=== PATIENT | male | born 1970 | race Caucasian/White ===

== ENCOUNTER 2021-01-24 23:19 | Emergency (ER) | payer MEDICARE, OTHER ==
[~2021-01-24 23:19] MED LIST: ATORVASTATIN CA80 MG PO; CLARITIN10 MG PO; GABAPENTIN400 MG PO; LEXAPRO10 MG PO; LOPRESSOR 25 MG25 MG PO; MELATONIN3 MG PO; OMEPRAZOLE20 MG PO; PLAVIX 75 MG TA75 MG PO; PRINIVIL20 MG PO; PRINIVIL5 MG PO; SEROQUEL25 MG PO; TYLENOL 500 MG500 MG PO; ULTRAM50 MG PO; [UNRECOGNIZED DRUG - REMARK]
== END 2021-01-25 00:26 | disposition left against medical advice (07) ==
LOC: ER1 23:19
DX: T83.9XXA Unspecified complication of genitourinary prosthetic device, implant and graft, initial encounter (principal); N18.30 Chronic kidney disease, stage 3 unspecified
CPT/HCPCS: 51702; 99284

== ENCOUNTER 2021-05-29 20:05 | Emergency (ER) | payer MEDICARE, OTHER ==
[2021-05-29 20:36] LABS: HEMOGLOBIN 12.3 gm/dl (14.0-17.5); RED BLOOD COUNT 4.52 M/UL (4.20-5.50); WHITE BLOOD COUNT 9.2 K/UL (4.5-11.0)
== END 2021-05-30 10:00 | disposition short-term general hospital (02) ==
LOC: ER1 20:05 → CDU 05-30 04:48 → ER1 05-30 04:48 → CDU 05-30 04:48
PROVIDERS: Family Medicine
DX: J96.91 Respiratory failure, unspecified with hypoxia (principal); I31.3 Pericardial effusion (noninflammatory); J18.9 Pneumonia, unspecified organism; J91.8 Pleural effusion in other conditions classified elsewhere; N28.9 Disorder of kidney and ureter, unspecified; R77.8 Other specified abnormalities of plasma proteins; I25.10 Atherosclerotic heart disease of native coronary artery without angina pectoris; E11.9 Type 2 diabetes mellitus without complications; Z95.1 Presence of aortocoronary bypass graft; Z20.822 Contact with and (suspected) exposure to COVID-19; Z88.0 Allergy status to penicillin
CPT/HCPCS: 36600; 71045; 71250; 80053; 80307; 81001; 82550; 82553; 82803; 83874; 84484; 85025; 85610; 96374; 99285; G0378; J1940; U0002

== ENCOUNTER 2021-07-13 13:33 | Inpatient (IN) | payer MEDICARE, OTHER ==
[~2021-07-13] VITALS: Ht 175.3 cm; Wt 82.6 kg
[~2021-07-13 13:33] MED LIST changes: -GABAPENTIN400 MG PO; +GABAPENTIN600 MG PO; -LOPRESSOR 25 MG25 MG PO; +METOPROLOL SUCC25 MG PO; +SPIRONOLACTONE25 MG PO; -TYLENOL 500 MG500 MG PO; +TYLENOL325 MG PO
[2021-07-13 15:16] LABS: HEMOGLOBIN 11.4 gm/dl (14.0-17.5); RED BLOOD COUNT 4.26 M/UL (4.20-5.50)
[2021-07-13] MEDS ORDERED: FUROSEMIDE40 MG PO (18:11)
[2021-07-13] MEDS ORDERED: DIVALPROEX SOD125 M1 PO (18:13)
[2021-07-13] MEDS ORDERED: TRAZODONE HCL100 MG PO (18:14)
[2021-07-13] MEDS ORDERED: PROTONIX40 MG PO (18:14)
[2021-07-13] MEDS ORDERED: TAMSULOSIN HCL0.4 MG PO (18:14)
[2021-07-13] MEDS ORDERED: ASPIRIN EC81 MG PO (18:15)
[2021-07-13] MEDS ORDERED: POTASSIUM CHLOR8 MEQ PO (18:15)
[2021-07-13] MEDS ORDERED: DRISDOL1250 MCG PO (18:15)
[2021-07-13] MEDS ORDERED: SENNA PLUS 8.61 EACH PO (18:16)
[2021-07-14 05:48] LABS: HEMOGLOBIN 10.6 gm/dl (14.0-17.5); RED BLOOD COUNT 4.03 M/UL (4.20-5.50); WHITE BLOOD COUNT 6.6 K/UL (4.5-11.0)
[2021-07-15 03:38] LABS: HEMOGLOBIN 10.9 gm/dl (14.0-17.5); RED BLOOD COUNT 4.13 M/UL (4.20-5.50)
[2021-07-16 08:56] LABS: HEMOGLOBIN 12.6 gm/dl (14.0-17.5); WHITE BLOOD COUNT 5.9 K/UL (4.5-11.0)
[2021-07-16 08:57] LABS: RED BLOOD COUNT 4.74 M/UL (4.20-5.50)
[2021-07-17 03:46] LABS: HEMOGLOBIN 10.8 gm/dl (14.0-17.5)
[2021-07-17 03:47] LABS: RED BLOOD COUNT 4.16 M/UL (4.20-5.50)
[2021-07-18 04:02] LABS: HEMOGLOBIN 10.9 gm/dl (14.0-17.5); RED BLOOD COUNT 4.23 M/UL (4.20-5.50); WHITE BLOOD COUNT 6.6 K/UL (4.5-11.0)
[2021-07-20 04:51] LABS: BUN/CREATININE RATIO 26 (0-10)
[2021-07-20 10:45] LABS: BODY FLUID SOURCE PLEURAL
[2021-07-20 10:48] LABS: MONONUCLEAR CELLS 88 (75-100); POLYMORPHONUCLEAR % 12 (0-25); RBC (AUTOMATED) 300 (0-100000); WBC (AUTOMATED) 175 (0-500)
[2021-07-20 11:18] LABS: TOTAL PROTEIN, BODY FLUID 3.8 gm/dL
[2021-07-20 11:19] LABS: LDH, BODY FLUID 94 U/L
--- NOTE | 2021-07-23 14:24 | NUR ---
ATTEMPTED TO CALL REPORT TO ROXANA ALY ON 4TH FLOOR FOR TRANSFER, SHE IS BUSY WITH ADMISSION, WILL CALL BACK
--- NOTE | 2021-07-23 15:23 | NUR ---
REPORT TO ROXANA ALY ON 4TH FLOOR FOR PATIENT TRANSFER TO [facility]
[2021-07-25 06:56] LABS: BUN/CREATININE RATIO 29 (0-10)
--- NOTE | 2021-07-26 18:48 | NUR ---
TAPIA CATHETER D/'D WITH 150 IN UROMETER. PT TOLERATED WELL.
[2021-07-27 06:18] LABS: HEMOGLOBIN 11.1 gm/dl (14.0-17.5); RED BLOOD COUNT 4.29 M/UL (4.20-5.50); WHITE BLOOD COUNT 5.8 K/UL (4.5-11.0)
[2021-07-28] MEDS ORDERED: LISINOPRIL5 MG PO (10:30)
[2021-07-28] MEDS ORDERED: CARVEDILOL3.125 MG PO (10:30)
== END 2021-07-28 14:11 | disposition home health service (06) | DRG 291 ==
LOC: ER1 13:33 → CDU 17:11 → PROG CARE 17:11 → MED SURG 4 17:11 → PROG CARE 21:38 → MED SURG 4 07-23 15:07
PROVIDERS: Internal Medicine; Internal Medicine Pulmonary Disease; Nurse Practitioner; Physician Assistant Medical; ADMIT Internal Medicine
PROC: 0W993ZZ Drainage of Right Pleural Cavity, Percutaneous Approach (ICD-10-PCS; principal; 2021-07-20)
DX: I13.0 Hypertensive heart and chronic kidney disease with heart failure and stage 1 through stage 4 chronic kidney disease, or unspecified chronic kidney disease (principal); J18.9 Pneumonia, unspecified organism; J96.21 Acute and chronic respiratory failure with hypoxia; I50.23 Acute on chronic systolic (congestive) heart failure; T83.518A Infection and inflammatory reaction due to other urinary catheter, initial encounter; N17.9 Acute kidney failure, unspecified; E87.1 Hypo-osmolality and hyponatremia; Z20.822 Contact with and (suspected) exposure to COVID-19; N18.30 Chronic kidney disease, stage 3 unspecified; I25.10 Atherosclerotic heart disease of native coronary artery without angina pectoris; E11.22 Type 2 diabetes mellitus with diabetic chronic kidney disease; E78.5 Hyperlipidemia, unspecified; F15.10 Other stimulant abuse, uncomplicated; E11.40 Type 2 diabetes mellitus with diabetic neuropathy, unspecified; E55.9 Vitamin D deficiency, unspecified; R13.10 Dysphagia, unspecified; I95.2 Hypotension due to drugs; T42.0X5A Adverse effect of hydantoin derivatives, initial encounter; R53.81 Other malaise; I25.5 Ischemic cardiomyopathy; N40.0 Benign prostatic hyperplasia without lower urinary tract symptoms; Z95.5 Presence of coronary angioplasty implant and graft; I69.391 Dysphagia following cerebral infarction; Z90.49 Acquired absence of other specified parts of digestive tract; Z90.89 Acquired absence of other organs; Z93.1 Gastrostomy status; Z98.890 Other specified postprocedural states; Z88.0 Allergy status to penicillin; Z82.49 Family history of ischemic heart disease and other diseases of the circulatory system; Z83.3 Family history of diabetes mellitus; Z79.82 Long term (current) use of aspirin; Z79.899 Other long term (current) drug therapy; Z79.4 Long term (current) use of insulin
CPT/HCPCS: ECHO; 36415; 36600; 51702; 71045; 73020; 78580; 80048; 80053; 80307; 81001; 82436; 82550; 82553; 82570; 82803; 82945; 82962; 83036; 83540; 83550; 83605; 83615; 83735; 83874; 83880; 84100; 84133; 84156; 84157; 84300; 84439; 84443; 84484; 85025; 85027; 85379; 85610; 85730; 86140; 87040; 87070; 87086; 87205; 89051; 93005; 93306; 94760; 96374; 97110; 97110-GP-CQ; 97116-GP-CQ; 97161; 97166; 97530; 97530-GP-CQ; 97535; 99285; A9540; J1205; J1335; J1644; J1650; J1940; J2270; J2405; J7030; J7050; U0002

== ENCOUNTER 2021-09-24 10:26 | Inpatient (IN) | payer MEDICARE, OTHER ==
[~2021-09-24] VITALS: Ht 175.3 cm; Wt 104.1 kg
[~2021-09-24 10:26] MED LIST changes: +ASPIRIN EC81 MG PO; +CARVEDILOL3.125 MG PO; +DRISDOL1250 MCG PO; +LISINOPRIL5 MG PO; +SENNA PLUS 8.61 EACH PO; +TAMSULOSIN HCL0.4 MG PO
[2021-09-24 10:55] LABS: RED BLOOD COUNT 4.34 M/UL (4.20-5.50); WHITE BLOOD COUNT 6.6 K/UL (4.5-11.0)
[2021-09-24] MEDS ORDERED: FUROSEMIDE40 MG PO (18:11)
[2021-09-24] MEDS ORDERED: DIVALPROEX SOD125 M1 PO (18:13)
[2021-09-24] MEDS ORDERED: PROTONIX40 MG PO (18:14)
[2021-09-24] MEDS ORDERED: TRAZODONE HCL100 MG PO (18:14)
[2021-09-24] MEDS ORDERED: POTASSIUM CHLO10 ME1 PO (18:15)
[2021-09-24] MEDS ORDERED: LISINOPRIL2.5 MG PO (18:26)
[2021-09-24] MEDS ORDERED: LEXAPRO10 MG PO (18:29)
[2021-09-24] MEDS ORDERED: METOPROLOL SUCC25 MG PO (18:29)
[2021-09-25 05:53] LABS: HEMOGLOBIN 11.1 gm/dl (14.0-17.5); RED BLOOD COUNT 4.4 M/UL (4.20-5.50)
[2021-09-26 05:21] LABS: HEMOGLOBIN 10.8 gm/dl (14.0-17.5); RED BLOOD COUNT 4.27 M/UL (4.20-5.50); WHITE BLOOD COUNT 8.8 K/UL (4.5-11.0)
[2021-09-27 03:04] LABS: HEMOGLOBIN 10.4 gm/dl (14.0-17.5); RED BLOOD COUNT 4.13 M/UL (4.20-5.50); WHITE BLOOD COUNT 9.9 K/UL (4.5-11.0)
[2021-09-28 03:00] LABS: RED BLOOD COUNT 4.35 M/UL (4.20-5.50); WHITE BLOOD COUNT 8.1 K/UL (4.5-11.0)
[2021-09-29 04:12] LABS: HEMOGLOBIN 10.2 gm/dl (14.0-17.5); RED BLOOD COUNT 4.01 M/UL (4.20-5.50); WHITE BLOOD COUNT 6.8 K/UL (4.5-11.0)
[2021-09-30 07:50] LABS: HEMOGLOBIN 10.3 gm/dl (14.0-17.5); RED BLOOD COUNT 4.14 M/UL (4.20-5.50)
[2021-10-01 06:53] LABS: HEMOGLOBIN 10.9 gm/dl (14.0-17.5); RED BLOOD COUNT 4.35 M/UL (4.20-5.50); WHITE BLOOD COUNT 6.1 K/UL (4.5-11.0)
[2021-10-02 06:28] LABS: HEMOGLOBIN 10.9 gm/dl (14.0-17.5); RED BLOOD COUNT 4.31 M/UL (4.20-5.50); WHITE BLOOD COUNT 6.6 K/UL (4.5-11.0)
[2021-10-03 05:00] LABS: HEMOGLOBIN 10.7 gm/dl (14.0-17.5); RED BLOOD COUNT 4.22 M/UL (4.20-5.50); WHITE BLOOD COUNT 6.4 K/UL (4.5-11.0)
[2021-10-04 06:33] LABS: HEMOGLOBIN 10.5 gm/dl (14.0-17.5); RED BLOOD COUNT 4.19 M/UL (4.20-5.50); WHITE BLOOD COUNT 5.2 K/UL (4.5-11.0)
[2021-10-04] MEDS ORDERED: CARVEDILOL3.125 MG PO (14:19)
[2021-10-04] MEDS ORDERED: IPRAT-ALBUT 0.5-3 ML NEB (14:19)
[2021-10-04] MEDS ORDERED: BUMETANIDE1 MG PO (14:19)
[2021-10-04] MEDS ORDERED: BUDESONIDE0.5 MG/2 M NEB (14:19)
[2021-10-04] MEDS ORDERED: LANTUS SOL100 UNIT/1 SQ (14:40)
[2021-10-04] MEDS ORDERED: ALDACTONE 25MG25 MG PO (14:40)
[2021-10-05 07:28] LABS: HEMOGLOBIN 11.5 gm/dl (14.0-17.5); WHITE BLOOD COUNT 5.2 K/UL (4.5-11.0)
[2021-10-05 07:32] LABS: RED BLOOD COUNT 4.65 M/UL (4.20-5.50)
[2021-10-06 03:52] LABS: HEMOGLOBIN 10.5 gm/dl (14.0-17.5); WHITE BLOOD COUNT 5.9 K/UL (4.5-11.0)
[2021-10-06 03:53] LABS: RED BLOOD COUNT 4.16 M/UL (4.20-5.50)
[2021-10-07 03:12] LABS: HEMOGLOBIN 10.6 gm/dl (14.0-17.5); RED BLOOD COUNT 4.19 M/UL (4.20-5.50); WHITE BLOOD COUNT 6.3 K/UL (4.5-11.0)
[2021-10-08 06:58] LABS: HEMOGLOBIN 10.4 gm/dl (14.0-17.5); RED BLOOD COUNT 4.1 M/UL (4.20-5.50); WHITE BLOOD COUNT 6.1 K/UL (4.5-11.0)
[2021-10-08] MEDS ORDERED: BUMETANIDE1 MG PO (12:11)
[2021-10-08] MEDS ORDERED: ALDACTONE 25MG25 MG PO (12:11)
[2021-10-08] MEDS ORDERED: DOXYCYCLINE HY100 MG PO (12:11)
== END 2021-10-08 14:18 | disposition home health service (06) | DRG 226 ==
LOC: ER1 10:26 → PROG CARE 12:16 → MED SURG 4 12:16 → CCU 12:16 → CDU 12:16 → CCU 14:42 → PROG CARE 09-26 19:16 → MED SURG 4 09-29 16:07
PROVIDERS: Internal Medicine; Internal Medicine Nephrology; Internal Medicine Pulmonary Disease; Nurse Practitioner; ADMIT Internal Medicine
PROC: 5A09457 Assistance with Respiratory Ventilation, 24-96 Consecutive Hours, Continuous Positive Airway Pressure (ICD-10-PCS; principal; 2021-09-25)
PROC: B24BZZZ Ultrasonography of Heart with Aorta (ICD-10-PCS; 2021-09-25)
PROC: 0JH608Z Insertion of Defibrillator Generator into Chest Subcutaneous Tissue and Fascia, Open Approach (ICD-10-PCS; 2021-10-06)
PROC: 0JH60FZ Insertion of Subcutaneous Defibrillator Lead into Chest Subcutaneous Tissue and Fascia, Open Approach (ICD-10-PCS; 2021-10-06)
DX: I13.0 Hypertensive heart and chronic kidney disease with heart failure and stage 1 through stage 4 chronic kidney disease, or unspecified chronic kidney disease (principal); J18.9 Pneumonia, unspecified organism; Z20.822 Contact with and (suspected) exposure to COVID-19; I50.43 Acute on chronic combined systolic (congestive) and diastolic (congestive) heart failure; G92.8 Other toxic encephalopathy; J96.21 Acute and chronic respiratory failure with hypoxia; J96.22 Acute and chronic respiratory failure with hypercapnia; N17.9 Acute kidney failure, unspecified; E87.2 Acidosis; E87.3 Alkalosis; J44.1 Chronic obstructive pulmonary disease with (acute) exacerbation; J44.0 Chronic obstructive pulmonary disease with (acute) lower respiratory infection; Z90.49 Acquired absence of other specified parts of digestive tract; N18.30 Chronic kidney disease, stage 3 unspecified; I25.10 Atherosclerotic heart disease of native coronary artery without angina pectoris; I25.5 Ischemic cardiomyopathy; E11.22 Type 2 diabetes mellitus with diabetic chronic kidney disease; E78.5 Hyperlipidemia, unspecified; E66.01 Morbid (severe) obesity due to excess calories; R53.81 Other malaise; F15.10 Other stimulant abuse, uncomplicated; E87.5 Hyperkalemia; Z95.5 Presence of coronary angioplasty implant and graft; Z93.1 Gastrostomy status; Z98.890 Other specified postprocedural states; Z88.0 Allergy status to penicillin; Z88.5 Allergy status to narcotic agent; Z82.49 Family history of ischemic heart disease and other diseases of the circulatory system; Z83.3 Family history of diabetes mellitus; Z91.14 Patient's other noncompliance with medication regimen; I25.2 Old myocardial infarction; Z86.73 Personal history of transient ischemic attack (TIA), and cerebral infarction without residual deficits; Z79.82 Long term (current) use of aspirin; Z79.899 Other long term (current) drug therapy; Z88.8 Allergy status to other drugs, medicaments and biological substances; Z79.4 Long term (current) use of insulin; Z68.33 Body mass index [BMI] 33.0-33.9, adult
CPT/HCPCS: ECHO; 0240U; 33270; 36415; 36600; 51702; 70450; 71045; 71046; 73030; 73060; 73090; 80048; 80053; 80307; 81001; 82140; 82150; 82550; 82553; 82803; 82962; 83036; 83605; 83615; 83690; 83735; 83874; 83880; 84100; 84133; 84300; 84484; 85025; 85027; 85379; 85610; 85652; 85730; 86140; 87040; 87081; 87086; 93005; 93306; 93644; 94640; 94660; 94760; 96374; 96375; 97110; 97110-GP-CQ; 97116; 97116-GP-CQ; 97162; 97166; 97530; 97530-GP-CQ; 99152; 99153; 99285; C1722; C1896; C9113; J1120; J1200; J1335; J1644; J1650; J1940; J1956; J2020; J2185; J2250; J2310; J2405; J2920; J3010; J3370; J7040; J7050; J7070

== ENCOUNTER 2021-11-19 13:35 | Inpatient (IN) | payer MEDICARE, OTHER ==
[~2021-11-19] VITALS: Ht 175.3 cm; Wt 93.9 kg
[~2021-11-19 13:35] MED LIST changes: +ALDACTONE 25MG25 MG PO; +BUDESONIDE0.5 MG/2 M NEB; +BUMETANIDE1 MG PO; +DIVALPROEX SOD125 M1 PO; +DOXYCYCLINE HY100 MG PO; +FLOMAX 0.4 MG0.4 MG PO; +FUROSEMIDE40 MG PO; +IPRAT-ALBUT 0.5-3 ML NEB; +LANTUS SOL100 UNIT/1 SQ; +LISINOPRIL2.5 MG PO; +POTASSIUM CHLO10 ME1 PO; +PROTONIX40 MG PO; -TAMSULOSIN HCL0.4 MG PO; +TRAZODONE HCL100 MG PO
[2021-11-19 15:09] LABS: HEMOGLOBIN 10.8 gm/dl (14.0-17.5); RED BLOOD COUNT 4.64 M/UL (4.20-5.50); WHITE BLOOD COUNT 9.5 K/UL (4.5-11.0)
[2021-11-19] MEDS ORDERED: BUMETANIDE1 MG PO (16:33)
[2021-11-19] MEDS ORDERED: CLOPIDOGREL75 MG PO (16:34)
[2021-11-19] MEDS ORDERED: SPIRONOLACTONE25 MG PO (16:34)
[2021-11-19] MEDS ORDERED: CARVEDILOL3.125 MG PO (16:34)
[2021-11-19] MEDS ORDERED: DIVALPROEX SOD250 MG PO (16:36)
[2021-11-19] MEDS ORDERED: ESCITALOPRAM OX10 MG PO (16:38)
[2021-11-20 04:04] LABS: HEMOGLOBIN 10.5 gm/dl (14.0-17.5); RED BLOOD COUNT 4.53 M/UL (4.20-5.50); WHITE BLOOD COUNT 8.6 K/UL (4.5-11.0)
--- NOTE | 2021-11-20 11:36 | NUR ---
11/20/21 1130 REPORT CALLED TO ALYSSA TO BE TRANSFERRED TO ROOM 2122 FOR DOBUTAMINE GTT
--- NOTE | 2021-11-20 12:31 | NUR ---
11/20/21 1230 REPORT CALLED TO YOLY CHATTERJEE RN TO BE TRANSFERRED TO 59 INSTEAD OF [phone]
[2021-11-21 01:44] LABS: HEMOGLOBIN 9.6 gm/dl (14.0-17.5); RED BLOOD COUNT 4.17 M/UL (4.20-5.50); WHITE BLOOD COUNT 9.4 K/UL (4.5-11.0)
[2021-11-22 02:13] LABS: HEMOGLOBIN 9.6 gm/dl (14.0-17.5); RED BLOOD COUNT 4.16 M/UL (4.20-5.50); WHITE BLOOD COUNT 7.6 K/UL (4.5-11.0)
[2021-11-30 02:27] LABS: HEMOGLOBIN 9.4 gm/dl (14.0-17.5); RED BLOOD COUNT 4.05 M/UL (4.20-5.50)
[2021-11-30] MEDS ORDERED: LOPRESSOR 25 MG25 MG PO (10:05)
== END 2021-11-30 12:17 | disposition home health service (06) | DRG 193 ==
LOC: ER1 13:35 → PROG CARE 16:08 → CDU 16:08 → M/S 17:36 → PROG CARE 11-20 12:39
PROVIDERS: Family Medicine; Internal Medicine; Internal Medicine Cardiovascular Disease; Internal Medicine Nephrology; ADMIT Internal Medicine
DX: J18.9 Pneumonia, unspecified organism (principal); J96.21 Acute and chronic respiratory failure with hypoxia; I50.23 Acute on chronic systolic (congestive) heart failure; Z20.822 Contact with and (suspected) exposure to COVID-19; I13.0 Hypertensive heart and chronic kidney disease with heart failure and stage 1 through stage 4 chronic kidney disease, or unspecified chronic kidney disease; N17.9 Acute kidney failure, unspecified; D63.1 Anemia in chronic kidney disease; E55.9 Vitamin D deficiency, unspecified; I25.5 Ischemic cardiomyopathy; E11.22 Type 2 diabetes mellitus with diabetic chronic kidney disease; N18.30 Chronic kidney disease, stage 3 unspecified; F15.10 Other stimulant abuse, uncomplicated; E66.9 Obesity, unspecified; I25.10 Atherosclerotic heart disease of native coronary artery without angina pectoris; F17.290 Nicotine dependence, other tobacco product, uncomplicated; Z95.1 Presence of aortocoronary bypass graft; Z95.810 Presence of automatic (implantable) cardiac defibrillator; Z79.01 Long term (current) use of anticoagulants; Z79.82 Long term (current) use of aspirin; Z82.49 Family history of ischemic heart disease and other diseases of the circulatory system; Z88.5 Allergy status to narcotic agent; Z88.0 Allergy status to penicillin; Z99.81 Dependence on supplemental oxygen; Z86.73 Personal history of transient ischemic attack (TIA), and cerebral infarction without residual deficits; Z90.49 Acquired absence of other specified parts of digestive tract; Z68.29 Body mass index [BMI] 29.0-29.9, adult; I25.2 Old myocardial infarction; Z79.4 Long term (current) use of insulin
CPT/HCPCS: 36415; 36600; 71045; 76705; 80048; 80053; 80307; 81001; 82550; 82553; 82570; 82803; 82962; 83605; 83735; 83880; 84100; 84156; 84484; 85025; 85610; 87040; 93005; 96374; 96375; 97110-GP-CQ; 97116-GP-CQ; 97162; 97530; 99285; J1250; J1335; J1644; J1940; J1956; J2270; U0002

== ENCOUNTER 2021-12-25 03:55 | Inpatient (IN) | payer MEDICARE, OTHER ==
[~2021-12-25] VITALS: Ht 175.3 cm; Wt 90.7 kg
[~2021-12-25 03:55] MED LIST changes: +CLOPIDOGREL75 MG PO; +DIVALPROEX SOD250 MG PO; +ESCITALOPRAM OX10 MG PO; +LOPRESSOR 25 MG25 MG PO
[2021-12-25 05:27] LABS: HEMOGLOBIN 10.9 gm/dl (14.0-17.5); RED BLOOD COUNT 4.57 M/UL (4.20-5.50); WHITE BLOOD COUNT 10.5 K/UL (4.5-11.0)
[2021-12-25] MEDS ORDERED: ALBUTEROL2.5 MG/3 M NEB (08:50)
[2021-12-25] MEDS ORDERED: SINEMET 25-1001 EACH PO (08:52)
[2021-12-25] MEDS ORDERED: COREG 3.125M3.125 MG PO ×2 (08:54→10:16)
[2021-12-25] MEDS ORDERED: ELIQUIS2.5 MG PO (08:54)
[2021-12-25] MEDS ORDERED: FLONASE 0.05% N16 GM (08:55)
[2021-12-25] MEDS ORDERED: ULORIC 40 MG TA40 MG PO (08:55)
[2021-12-25] MEDS ORDERED: FUROSEMIDE20 MG PO (08:56)
[2021-12-25] MEDS ORDERED: FUROSEMIDE40 MG PO (08:57)
[2021-12-25] MEDS ORDERED: NEURONTIN300 MG PO (08:58)
[2021-12-25] MEDS ORDERED: GLUCOTROL XL 5 M5 MG PO (08:59)
[2021-12-25] MEDS ORDERED: HUMALOG100 UNIT/1 SC (09:00)
[2021-12-25] MEDS ORDERED: ISOSORBIDE MONO30 MG PO (09:01)
[2021-12-25] MEDS ORDERED: CHRONULAC20 GM/30 M PO (09:02)
[2021-12-25] MEDS ORDERED: LANTUS SOL100 UNIT/1 SC (09:03)
[2021-12-25] MEDS ORDERED: SYNTHROID100 MCG PO (09:03)
[2021-12-25] MEDS ORDERED: METROCREAM 0.7545 GM TOP (09:06)
[2021-12-25] MEDS ORDERED: MIRALAX17 GM PO (09:07)
[2021-12-25] MEDS ORDERED: THERAGRAN M TAB1 EA PO (09:08)
[2021-12-25] MEDS ORDERED: ROXICODONE5 MG PO (09:09)
[2021-12-25] MEDS ORDERED: PROTONIX40 MG PO ×2 (09:09→10:31)
[2021-12-25] MEDS ORDERED: SODIUM CHLORIDE3 ML NEB (09:10)
[2021-12-25] MEDS ORDERED: B-122500 MCG SL (09:11)
[2021-12-25] MEDS ORDERED: DRISDOL1250 MCG PO (09:12)
[2021-12-25] MEDS ORDERED: MAALOX PLUS 3030 ML PO (09:16)
[2021-12-25] MEDS ORDERED: TYLENOL EXTRA500 MG PO (09:17)
[2021-12-25] MEDS ORDERED: LOPERAMIDE2 MG PO (09:18)
[2021-12-25] MEDS ORDERED: MYCOSTATIN POWD15 GM TOP (09:19)
[2021-12-25] MEDS ORDERED: NEURONTIN 100100 MG PO (10:12)
[2021-12-25] MEDS ORDERED: LIPITOR80 MG PO (10:15)
[2021-12-25] MEDS ORDERED: BUMETANIDE1 MG PO (10:16)
[2021-12-25] MEDS ORDERED: CLOPIDOGREL75 MG PO (10:17)
[2021-12-25] MEDS ORDERED: ALDACTONE 25MG25 MG PO (10:18)
[2021-12-25] MEDS ORDERED: FLOMAX 0.4 MG0.4 MG PO (10:18)
[2021-12-25] MEDS ORDERED: LISINOPRIL2.5 MG PO (10:18)
[2021-12-25] MEDS ORDERED: TRAZODONE HCL100 MG PO (10:19)
[2021-12-25] MEDS ORDERED: LANTUS100 UNIT/1 SC (10:25)
[2021-12-25] MEDS ORDERED: DEPAKOTE250 MG PO (10:26)
[2021-12-25] MEDS ORDERED: LEXAPRO TAB 1010 MG PO (10:29)
[2021-12-26 04:50] LABS: HEMOGLOBIN 9.8 gm/dl (14.0-17.5); WHITE BLOOD COUNT 8.6 K/UL (4.5-11.0)
[2021-12-26 04:54] LABS: RED BLOOD COUNT 4.11 M/UL (4.20-5.50)
[2021-12-26 20:20] LABS: HEMOGLOBIN 9.6 gm/dl (14.0-17.5); RED BLOOD COUNT 4.07 M/UL (4.20-5.50); WHITE BLOOD COUNT 8.5 K/UL (4.5-11.0)
[2021-12-27 05:11] LABS: HEMOGLOBIN 9.5 gm/dl (14.0-17.5); RED BLOOD COUNT 3.98 M/UL (4.20-5.50); WHITE BLOOD COUNT 7.4 K/UL (4.5-11.0)
[2021-12-27] MEDS ORDERED: ACETAMINOPHEN325 MG PO (12:49)
[2021-12-27] MEDS ORDERED: SENNA-DOCUSATE1 EACH PO (12:51)
[2021-12-27] MEDS ORDERED: ASPIRIN EC81 MG PO (12:52)
[2021-12-27] MEDS ORDERED: METOPROLOL TART25 MG PO (12:54)
[2021-12-27] MEDS ORDERED: FERROUS SULFAT325 MG PO (12:58)
[2021-12-27] MEDS ORDERED: VITAMIN C 500500 MG PO (12:58)
[2021-12-28 05:12] LABS: HEMOGLOBIN 10.6 gm/dl (14.0-17.5)
[2021-12-28 05:42] LABS: RED BLOOD COUNT 4.39 M/UL (4.20-5.50)
[2021-12-29 03:58] LABS: HEMOGLOBIN 10.6 gm/dl (14.0-17.5); RED BLOOD COUNT 4.41 M/UL (4.20-5.50); WHITE BLOOD COUNT 5.9 K/UL (4.5-11.0)
[2021-12-30 02:15] LABS: HEMOGLOBIN 10.1 gm/dl (14.0-17.5); RED BLOOD COUNT 4.18 M/UL (4.20-5.50); WHITE BLOOD COUNT 6.3 K/UL (4.5-11.0)
[2021-12-31 06:24] LABS: HEMOGLOBIN 10.5 gm/dl (14.0-17.5); RED BLOOD COUNT 4.41 M/UL (4.20-5.50); WHITE BLOOD COUNT 5.5 K/UL (4.5-11.0)
[2022-01-01 03:28] LABS: RED BLOOD COUNT 4.14 M/UL (4.20-5.50)
[2022-01-02 06:20] LABS: HEMOGLOBIN 10.5 gm/dl (14.0-17.5); RED BLOOD COUNT 4.3 M/UL (4.20-5.50); WHITE BLOOD COUNT 6.4 K/UL (4.5-11.0)
[2022-01-03 05:49] LABS: HEMOGLOBIN 10.2 gm/dl (14.0-17.5); RED BLOOD COUNT 4.15 M/UL (4.20-5.50); WHITE BLOOD COUNT 6.2 K/UL (4.5-11.0)
[2022-01-04] MEDS ORDERED: ISOSORBIDE MONO30 MG PO (11:17)
[2022-01-04] MEDS ORDERED: ALDACTONE 25MG25 MG PO (11:17)
[2022-01-04] MEDS ORDERED: BUMETANIDE1 MG PO (11:17)
== END 2022-01-04 13:30 | disposition home health service (06) | DRG 280 ==
LOC: ER1 03:55 → CDU 06:25 → M/S 06:25 → CCU 06:25 → M/S 12-29 14:06
PROVIDERS: Internal Medicine; Internal Medicine Nephrology; Internal Medicine Pulmonary Disease; Physician Assistant; ADMIT Internal Medicine
PROC: 5A09457 Assistance with Respiratory Ventilation, 24-96 Consecutive Hours, Continuous Positive Airway Pressure (ICD-10-PCS; principal; 2021-12-25)
PROC: 5A0945A Assistance with Respiratory Ventilation, 24-96 Consecutive Hours, High Flow/Velocity Cannula (ICD-10-PCS; 2021-12-26)
DX: I13.0 Hypertensive heart and chronic kidney disease with heart failure and stage 1 through stage 4 chronic kidney disease, or unspecified chronic kidney disease (principal); J96.01 Acute respiratory failure with hypoxia; Z20.822 Contact with and (suspected) exposure to COVID-19; I21.4 Non-ST elevation (NSTEMI) myocardial infarction; I50.23 Acute on chronic systolic (congestive) heart failure; I21.A1 Myocardial infarction type 2; J96.02 Acute respiratory failure with hypercapnia; J18.9 Pneumonia, unspecified organism; N17.9 Acute kidney failure, unspecified; E87.2 Acidosis; I25.5 Ischemic cardiomyopathy; N18.30 Chronic kidney disease, stage 3 unspecified; I25.10 Atherosclerotic heart disease of native coronary artery without angina pectoris; F15.10 Other stimulant abuse, uncomplicated; D63.1 Anemia in chronic kidney disease; E11.22 Type 2 diabetes mellitus with diabetic chronic kidney disease; I08.1 Rheumatic disorders of both mitral and tricuspid valves; E55.9 Vitamin D deficiency, unspecified; F17.290 Nicotine dependence, other tobacco product, uncomplicated; Z95.1 Presence of aortocoronary bypass graft; Z95.810 Presence of automatic (implantable) cardiac defibrillator; Z86.73 Personal history of transient ischemic attack (TIA), and cerebral infarction without residual deficits; Z79.01 Long term (current) use of anticoagulants; Z79.82 Long term (current) use of aspirin; Z82.49 Family history of ischemic heart disease and other diseases of the circulatory system; Z93.1 Gastrostomy status; Z90.49 Acquired absence of other specified parts of digestive tract; Z83.3 Family history of diabetes mellitus; Z68.29 Body mass index [BMI] 29.0-29.9, adult
CPT/HCPCS: 36415; 36600; 71045; 74018; 76705; 80048; 80053; 80061; 80307; 81001; 82150; 82550; 82553; 82728; 82803; 82962; 83540; 83550; 83605; 83690; 83735; 83880; 84100; 84439; 84443; 84484; 85025; 85027; 85610; 85730; 86140; 87040; 87086; 93005; 94640; 94660; 94664; 94760; 96374; 96375; 97110; 97110-GP-CQ; 97116; 97116-GP-CQ; 97162; 97166; 97530; 97530-GP-CQ; 99285; J1205; J1250; J1644; J1650; J1756; J1940; J2185; J2405; J3475; J3486; J7030; J7040; P9047; U0002

== ENCOUNTER 2022-01-14 19:14 | Emergency (ER) | payer MEDICARE ==
[~2022-01-14 19:14] MED LIST changes: +ACETAMINOPHEN325 MG PO; +ALBUTEROL2.5 MG/3 M NEB; +B-122500 MCG SL; +CHRONULAC20 GM/30 M PO; +COREG 3.125M3.125 MG PO; +DEPAKOTE250 MG PO; +ELIQUIS2.5 MG PO; +FERROUS SULFAT325 MG PO; +FLONASE 0.05% N16 GM; +FUROSEMIDE20 MG PO; +GLUCOTROL XL 5 M5 MG PO; +HUMALOG100 UNIT/1 SC; +ISOSORBIDE MONO30 MG PO; +LANTUS SOL100 UNIT/1 SC; +LANTUS100 UNIT/1 SC; +LEXAPRO TAB 1010 MG PO; +LIPITOR80 MG PO; +LOPERAMIDE2 MG PO; +MAALOX PLUS 3030 ML PO; +METOPROLOL TART25 MG PO; +METROCREAM 0.7545 GM TOP; +MIRALAX17 GM PO; +MYCOSTATIN POWD15 GM TOP; +NEURONTIN 100100 MG PO; +NEURONTIN300 MG PO; +ROXICODONE5 MG PO; +SENNA-DOCUSATE1 EACH PO; +SINEMET 25-1001 EACH PO; +SODIUM CHLORIDE3 ML NEB; +SYNTHROID100 MCG PO; +THERAGRAN M TAB1 EA PO; +TYLENOL EXTRA500 MG PO; +ULORIC 40 MG TA40 MG PO; +VITAMIN C 500500 MG PO
== END 2022-01-14 19:34 | disposition expired ==
LOC: ER1 19:14
DX: I46.9 Cardiac arrest, cause unspecified (principal); I13.0 Hypertensive heart and chronic kidney disease with heart failure and stage 1 through stage 4 chronic kidney disease, or unspecified chronic kidney disease; I50.20 Unspecified systolic (congestive) heart failure; N18.30 Chronic kidney disease, stage 3 unspecified; E78.5 Hyperlipidemia, unspecified; E11.22 Type 2 diabetes mellitus with diabetic chronic kidney disease; D63.1 Anemia in chronic kidney disease; Z95.0 Presence of cardiac pacemaker; Z86.73 Personal history of transient ischemic attack (TIA), and cerebral infarction without residual deficits
CPT/HCPCS: 92950; 99285